=== PATIENT | female | born 1990 | race Caucasian/White ===

== ENCOUNTER → 2018-05-27 | Outpatient (CLI) | payer OTHER | LOC: CIMAGING 13:59 | PROVIDERS: ATTEND Physical Medicine & Rehabilitation | DX: M79.641 Pain in right hand (principal); M25.531 Pain in right wrist | CPT/HCPCS: 73110-PO; 73130-PO ==

== ENCOUNTER → 2018-06-28 | Outpatient (CLI) | payer OTHER | LOC: FIMAGING 08:40 | PROVIDERS: ATTEND Physical Medicine & Rehabilitation | DX: S66.911A Strain of unspecified muscle, fascia and tendon at wrist and hand level, right hand, initial encounter (principal); M67.431 Ganglion, right wrist; M67.331 Transient synovitis, right wrist ==